=== PATIENT | male | born 1975 | race African-American/Black ===

== ENCOUNTER 2025-01-30 10:35 | Emergency (ER) | payer MEDICAID ==
[~2025-01-30] VITALS: Ht 172.7 cm; Wt 57.7 kg
[2025-01-30 11:42] LABS: BASO % 0.3 % (0.0-1.0); EOS # 0.2 10^3/uL (0.0-0.5); EOS % 2.2 % (0.0-3.0); HEMATOCRIT 34.6 % (42.0-52.0); LYMPH # 2.5 10^3/uL (1.5-5.0); LYMPH % 32.6 % (24.0-44.0); MEAN CORPUSCULAR HGB CONC 31.8 g/dl (32.0-36.5); MEAN CORPUSCULAR VOLUME 81.8 fl (80.0-96.0); MONO # 0.4 10^3/uL (0.0-0.8); MONO % 5.2 % (2.0-8.0); NEUTROPHILS # 4.5 10^3/uL (1.5-8.5); NEUTROPHILS % 59.4 % (36.0-66.0); PLATELET COUNT, AUTOMATED 594 10^3/uL (150-450); RED BLOOD COUNT 4.23 10^6/uL (4.30-6.10); WHITE BLOOD COUNT 7.6 10^3/uL (4.0-10.0)
[2025-01-30 12:01] LABS: LIPASE 24 U/L (12-53)
[2025-01-30 12:03] LABS: ALBUMIN 2.7 G/DL (3.2-5.2); ALKALINE PHOSPHATASE 81 U/L (40-129); ALT/SGPT 10 U/L (7.0-40); AST/SGOT 12 U/L (<34); BILIRUBIN,DIRECT < 0.1 MG/DL (<0.4); BILIRUBIN,TOTAL 0.3 MG/DL (0.3-1.2); BLOOD UREA NITROGEN 7 MG/DL (9-23); CALCIUM LEVEL 8.6 MG/DL (8.5-10.1); CARBON DIOXIDE LEVEL 32 MMOL/L (20-31); CHLORIDE LEVEL 104 MMOL/L (98-107); CREATININE FOR GFR 0.79 MG/DL (0.70-1.30); GLOMERULAR FILTRATION RATE > 90.0 (>60); GLUCOSE, FASTING 94 MG/DL (60-100); POTASSIUM SERUM 4.6 MMOL/L (3.5-5.1); SODIUM LEVEL 141 MMOL/L (136-145); TOTAL PROTEIN 7.3 G/DL (5.7-8.2)
[2025-01-30] MEDS ORDERED: OMEP1CAP73 PO (15:03)
[2025-01-30] MEDS ORDERED: NAPR-837 PO (15:03)
[2025-01-30 15:05] VITALS: BP 133/86; TEMP 97.6; O2SAT 98
== END 2025-01-30 15:18 | disposition home or self-care (01) ==
LOC: M ED 10:35
DX: M94.9 Disorder of cartilage, unspecified (principal)